=== PATIENT | female | born 1970 | race Caucasian/White ===

== ENCOUNTER 2022-03-01 10:36 | Emergency (ER) | payer OTHER, SELFPAY ==
[2022-03-01 10:48] VITALS: BP 132/76; PULSE 59; RESP 14; TEMP 36.6; O2SAT 99
--- NOTE | 2022-03-01 11:33 | ED.URI ---
HPI - URI/Sore Throat General Chief Complaint: Upper Respiratory Infection Stated Complaint: upper respiratory Time Seen by Provider: 03/01/22 11:50 Source: patient and RN notes reviewed Mode of arrival: ambulatory Limitations: no limitations History of Present Illness HPI Narrative: 51-year-old female with history of asthma and everyday smoking presents with concern of for 9 day history of cough, chest discomfort with coughing, chest congestion, runny nose. Reports she has been taking Tylenol Severe cold and flu without relief. She reports chills, body aches. Denies fever. Reports she has been using her albuterol inhaler frequently, she last used it just prior to arrival MD elicited complaint: cough Related Data Home Medications Medication Instructions Recorded Confirmed albuterol sulfate 90 mcg/actuation inhalation 03/01/22 aerosol inhaler amitriptyline 50 mg tablet mg HS 03/01/22 buspirone 10 mg tablet mg 03/01/22 buspirone 15 mg tablet mg 03/01/22 cariprazine 3 mg capsule (Vraylar) mg 03/01/22 duloxetine 30 mg capsule,delayed mg PO 03/01/22 release duloxetine 60 mg capsule,delayed mg PO 03/01/22 release furosemide 20 mg tablet mg 03/01/22 gabapentin 300 mg capsule mg 03/01/22 mometasone-formoterol HFA 100 inhalation 03/01/22 mcg-5 mcg/actuation aerosol inhaler (Dulera) montelukast 10 mg tablet mg 03/01/22 sumatriptan succinate 100 mg tablet mg PO 03/01/22 topiramate 50 mg tablet mg 03/01/22 Allergies Allergy/AdvReac Type Severity Reaction Status Date / Time No Known Allergies Allergy Unverified 10/10/13 17:09 Review of Systems Review of Systems: CONSTITUTIONAL: Reports malaise, chills. Denies sweats, or fever. EYES: Denies visual changes, redness, or discharge. ENT: Reports rhinorrhea, congestion. Denies sinus pain, otalgia and sore throat. CARDIOVASCULAR: Denies chest pain, palpitations, or edema. RESPIRATORY: Reports cough and chest congestion. Denies dyspnea. GASTROINTESTINAL: Denies abdominal pain, nausea, vomiting, diarrhea SKIN: Denies rash or itching. MUSCULOSKELETAL: Denies myalgia. NEUROLOGIC: Denies headache. All systems reviewed & are unremarkable except as noted in HPI and below PMFSH Social History Social History Smoking status: Current every day smoker Alcohol intake: current Alcohol use details: occasional Comments At time of signature, agree with nursing past medical, surgical, social and family history. There is no relevant family history pertinent to the presenting complaint Exam Narrative: GENERAL: Well-appearing, well-nourished, and in no acute distress. HEAD: Normocephalic EYES: PERRLA, conjunctivae clear ENT: Nares clear, clear discharge. Mucous membranes moist. TM pearly kate with dull light reflex bilaterally; no tragal tenderness. Oropharynx not erythematous without lesions. Tonsils not enlarged and without exudate, no drooling, no hoarseness, no trismus, uvula midline. NECK: Supple. No lymphadenopathy CHEST: Clear to auscultation, breath sounds equal. No wheezing, rhonchi, rales, or stridor. No respiratory distress, speaks in full sentences. HEART: Regular rate and rhythm. No murmur heard. SKIN: Warm, dry, no rash. NEURO: Alert and oriented x3. PSYCH: Normal mood and affect Course Course Emergency Course: Patient is aware of diagnosis, understands and agrees to treatment plan. Anticipatory guidance given. Patient agrees to follow-up as directed and is aware of reasons to seek care at the emergency department. Portions of this record may have been created with voice recognition software Level of Care: Express Care Visit Vital Signs Vital signs: Vital Signs Temperature 97.8 F 03/01/22 10:48 Pulse Rate 59 L 03/01/22 10:48 Respiratory Rate 14 03/01/22 10:48 Blood Pressure 132/76 03/01/22 10:48 Pulse Oximetry 99 03/01/22 10:48 Oxygen Delivery Room Air 03/01/22 10:4
== END 2022-03-01 12:09 | disposition home or self-care (01) ==
PROVIDERS: Emergency Provider Nurse Practitioner; PCP Nurse Practitioner Family
DX: J06.9 Acute upper respiratory infection, unspecified (principal); J45.909 Unspecified asthma, uncomplicated; F17.210 Nicotine dependence, cigarettes, uncomplicated; M79.7 Fibromyalgia
CPT/HCPCS: 99213; G0463

== ENCOUNTER → 2022-04-28 13:59 | Outpatient (CLI) | payer OTHER, SELFPAY ==
--- NOTE | ~2022-04-28 | XR_ITS ---
EXAMINATION: XR chest 2V DATE: 04/28/2022 14:17 INDICATION: Atypical chest pain. TECHNIQUE: Frontal and lateral views of the chest were obtained. COMPARISON: Chest 2 views 10/10/2013, neck CT 10/10/2013 FINDINGS: The chest demonstrates clear lungs without pneumonia, pleural effusion, or pneumothorax. Th e heart size is normal. There are chronic linear radiopaque foreign bodies in left subclavicular kika on. IMPRESSION: 1. No acute cardiopulmonary disease. Reviewed, dictated and finalized at location A. WORK
--- NOTE | ~2022-04-28 | XR_ITS ---
EXAMINATION: XR knee LT 3V DATE: 04/28/2022 14:26 INDICATION: Chronic left knee swelling. TECHNIQUE: 3 views of left knee were obtained. COMPARISON: Left knee radiograph 08/14/2019 FINDINGS: Bone alignment is normal. No fracture. There is mild osteoarthritis of patellofemoral lex rtment characterized by a tiny osteophyte. No knee joint effusion. IMPRESSION: 1. Mild left knee osteoarthritis. Reviewed, dictated and finalized at location A. CONTROLLER
== END ==
PROVIDERS: PCP Nurse Practitioner Family; Visit Provider Nurse Practitioner Family
DX: R07.89 Other chest pain (principal); M17.12 Unilateral primary osteoarthritis, left knee
CPT/HCPCS: 71046; 73562

== ENCOUNTER 2023-10-03 16:03 | Emergency (ER) | payer OTHER, SELFPAY ==
--- NOTE | ~2023-10-03 | XR_ITS ---
EXAM: XR knee RT 3V DATE: 10/03/2023 16:33 HISTORY: Right knee pain x 3 weeks. NKI. Lateral/posterior pain . COMPARISON: None available. FINDINGS: Decreased mineralization. No fracture or dislocation. No lytic or blastic lesion. Mild med ial joint space narrowing and patellofemoral osteophytosis. No erosion or periosteal change. Soft tis sues within normal limits. IMPRESSION: No acute osseous finding in the right knee. Reviewed, dictated and finalized at location K.
[2023-10-03 16:10] VITALS: BP 137/66; PULSE 63; RESP 20; TEMP 36.4; O2SAT 99
--- NOTE | 2023-10-03 16:58 | ED.GENADULT ---
HPI - General Adult General Chief complaint: Extremity Problem,Nontraumatic Stated complaint: Right knee pain Source: patient Mode of arrival: ambulatory Limitations: no limitations History of Present Illness HPI narrative: Patient presents for evaluation of right-sided knee pain. Symptom onset 3.5 weeks ago. She cannot identify any precipitating cause or injury. No history of similar symptoms. She states her pain is constant, sharp, and throbbing. She rates her pain 8/10 in severity. She takes naproxen for pain. She saw her primary care provider placed a referral for her to see Orthopedics. She has an appointment with them in the coming weeks. Pain is worse with movement, weight-bearing and walking. Related Data Home Medications Medication Instructions Recorded Confirmed albuterol sulfate 90 mcg/actuation inhalation 03/01/22 aerosol inhaler amitriptyline 50 mg tablet mg HS 03/01/22 buspirone 10 mg tablet mg 03/01/22 buspirone 15 mg tablet mg 03/01/22 cariprazine 3 mg capsule (Vraylar) mg 03/01/22 duloxetine 30 mg capsule,delayed mg PO 03/01/22 release duloxetine 60 mg capsule,delayed mg PO 03/01/22 release furosemide 20 mg tablet mg 03/01/22 gabapentin 300 mg capsule mg 03/01/22 mometasone-formoterol HFA 100 inhalation 03/01/22 mcg-5 mcg/actuation aerosol inhaler (Dulera) montelukast 10 mg tablet mg 03/01/22 sumatriptan succinate 100 mg tablet mg PO 03/01/22 topiramate 50 mg tablet mg 03/01/22 Allergies Allergy/AdvReac Type Severity Reaction Status Date / Time No Known Allergies Allergy Unverified 10/10/13 17:09 Review of Systems Review of Systems: CONSTITUTIONAL: Denies fever, chills, or sweats. EYES: Denies visual changes, redness, or discharge. ENT: Denies rhinorrhea, congestion, sore throat, or otalgia. CARDIOVASCULAR: Denies chest pain, palpitations, or edema. RESPIRATORY: Denies cough or dyspnea. GASTROINTESTINAL: Denies abdominal pain, nausea, vomiting, or diarrhea. GENITOURINARY: Denies dysuria or hematuria. SKIN: Denies rash or itching. MUSCULOSKELETAL: Reports right knee pain and swelling. NEUROLOGIC: Denies headache, numbness, dizziness, or weakness. PSYCHIATRIC: Denies anxiety or depression. [facility] Past Medical History Medical History Anxiety Depression Surgical History Surgical History No pertinent past surgical history Family History Family History Mother Family history non-contributory Social History Social History Alcohol intake: current Alcohol use details: occasional Gender identity (if verbalized by the patient): Female Spiritual care concerns: No Exam Narrative: GENERAL: Well-appearing, well-nourished, and in no acute distress. HEAD: Normocephalic, atraumatic. EYES: PERRLA and EOMI. ENT: Nares clear, no rhinorrhea or epistaxis. Mucous membranes moist. Oropharynx without tonsillar hypertrophy exudate or other lesions. Bilateral TMs pearly kate nonbulging NECK: Supple. No adenopathy or masses. No carotid bruits or JVD CHEST: Clear to auscultation. No respiratory distress. No wheezes rales or rhonchi HEART: Regular rate and rhythm. No murmur heard. Normal peripheral pulses. ABDOMEN: Soft, nontender, nondistended, normal active bowel sounds. EXTREMITIES: Anterolateral aspect of the right knee is tender to palpation. There is trace swelling. She has decreased range of motion of the right knee. No deformity SKIN: Warm, dry, no rash. NEURO: No focal deficits. Alert and oriented x3. PSYCH: Normal mood and affect. Course Course Emergency Course: This is a 53-year-old female who presents for evaluation of right knee pain. X ray negative for fracture. Exam consistent with strain. Recomm
== END 2023-10-03 17:02 | disposition home or self-care (01) ==
PROVIDERS: Emergency Provider Nurse Practitioner; PCP Nurse Practitioner Family
DX: S86.911A Strain of unspecified muscle(s) and tendon(s) at lower leg level, right leg, initial encounter (principal); X58.XXXA Exposure to other specified factors, initial encounter
CPT/HCPCS: 73562; 99213; G0463